=== PATIENT | female | born 1985 ===

== ENCOUNTER 2018-10-02 08:52 | Inpatient (IN) | payer OTHER ==
[2018-10-02] VITALS (18 sets, daily range): BP systolic 93–130; BP diastolic 50–76; PULSE 64–99; TEMP 97.6–98.1
[~2018-10-02] VITALS: Ht 152.4 cm; Wt 83.6 kg
[~2018-10-02 08:52] MED LIST: MOTRIN 600600 MG/TAB PO; PERCOCET 325 MG1 TA2 PO; PRENATAL VITAMI1 TAB PO
--- NOTE | 2018-10-02 09:02 | NUR ---
[id number] TO 211 FOR SCHEDULED REPEAT C/S. ASSISTED INTO GOWN AND PLACED ON EFM. PATIENT ASSESSMENT COMPLETE. CONSNETS REVIEWED AND SIGNED. 0925-IV TO RIGHT WRIST. BLOOD COLLECTED AND SENT TO LAB. LR INFUSING. REVIEWED PLAN OF CARE. CLIPPERS TRIMMED MONS PUBIS. ABDOMEN CLEANSED BY PATIENT WITH SURGICAL SCRUB.
[2018-10-02 09:46] LABS: BASO % 0.3 % (0.0-2.0); EOS # 0.1 (0.0-0.7); EOS % 0.6 % (0-4.0); GRAN # 5.8 (1.4-6.5); GRAN % 74.7 % (42.2-75.2); HEMATOCRIT 37.1 % (37.0-47.0); HEMOGLOBIN 12.3 g/dl (12.5-16.0); LYMPH # 1.2 (1.2-3.4); LYMPH % 15.6 % (20.0-51.0); MEAN CELL VOLUME 77 fl (80.0-100.0); MEAN CORPUSCULAR HEMOGLOBIN 26 pg (27.0-31.0); MEAN CORPUSCULAR HGB CONC 33 g/dl (33.0-37.0); MEAN PLATELET VOLUME 11.8 fl (7.4-10.4); MONO # 0.6 (0.1-0.6); MONO % 8.2 % (1.7-9.3); PLATELET COUNT 192 K/mm3 (130-400); RED BLOOD COUNT 4.83 M/mm3 (4.10-5.30); REDCELL DISTRIBUTION WIDTH-CV 13.7 % (11.5-14.5)
--- NOTE | 2018-10-02 11:06 | NUR ---
1106-AMBULATORY TO OR WITH SPOUSE AT SIDE. ASSISTED TO OR TABLE. 1108-EFM IN PLACE, AUDIBLE FHR 145BPM, DIFFICULTY TRACING DUE TO MATERNAL POSITIONING FOR SPINAL. 1112-WL 1113-FHR REMAINS 145-150BPM. OFF EFM.
--- NOTE | 2018-10-02 12:40 | NUR ---
Assumed care of patient while in pacu. 1244 Baby brought in by Natalya bullock Attempts to feed baby. Latches on with some crying. Denies any pain at this time.
--- NOTE | 2018-10-02 12:50 | NUR ---
Continues to hold baby skin to skin. Latches on at times.
--- NOTE | 2018-10-02 12:53 | NUR ---
1225-PATIENT TO PACU VIA BED. RECIEVED BEDSIDE REPORT FROM MATTEO WARD. PATIENT A&O X4. REPORTS NO PAIN. IVF TO RIGHT WRIST, HDZ TO DD, CLEAR YELLOW URINE. ABDOMINAL BINDER, FUNDAL MASSAGE FIRM. LOCHIAL WNL, ABDOMINAL DRESSING C/D/I. VSS, SEE RECOVERY FLOW RECORD.
--- NOTE | 2018-10-02 18:00 | NUR ---
1800-Patient ambulates with steady gait to bathroom, assisted with esther care and gown change.
[2018-10-03] VITALS: BP 113/60; PULSE 67; TEMP 97.4
[2018-10-03 04:45] VITALS: BP 117/67; PULSE 65; TEMP 97.6
[2018-10-03 07:49] VITALS: BP 99/40; PULSE 65; TEMP 97.6
--- NOTE | 2018-10-03 10:02 | NUR ---
Initial visit; Mom thanked Hop Picker for offering congratulations and God's blessings for the of ther daughter. Hop Picker thanked mom for choosing [facility].
[2018-10-03] MEDS ORDERED: IBU600 MG PO (13:00)
[2018-10-03] MEDS ORDERED: PERCOCET 325 MG1 TA2 PO (13:00)
[2018-10-03 16:15] VITALS: BP 108/58; PULSE 66; TEMP 98.4
[2018-10-03 22:40] VITALS: BP 105/62; PULSE 67
[2018-10-04 07:38] VITALS: BP 110/64; PULSE 74; TEMP 98.1
[2018-10-04 21:13] VITALS: BP 115/47; PULSE 77; TEMP 98.9
[2018-10-05 06:55] VITALS: BP 102/49; PULSE 68; TEMP 98.3
== END 2018-10-05 14:45 | disposition home or self-care (01) | DRG 787 ==
LOC: OB 08:52 → LDR 13:49 → OB 10-05 14:45
PROVIDERS: ADMIT Obstetrics & Gynecology
PROC: 10D00Z1 Extraction of Products of Conception, Low, Open Approach (ICD-10-PCS; principal; 2018-10-02)
DX: O34.211 Maternal care for low transverse scar from previous cesarean delivery (principal); O99.12 Other diseases of the blood and blood-forming organs and certain disorders involving the immune mechanism complicating childbirth; D56.3 Thalassemia minor; O99.214 Obesity complicating childbirth; Z3A.39 39 weeks gestation of pregnancy; Z37.0 Single live birth
CPT/HCPCS: J0171; J0690; J1885; J2175; J2370; J2405; J2590; J3010; J7120

== ENCOUNTER 2021-03-16 09:16 | Inpatient (IN) | payer OTHER ==
[2021-03-16] VITALS (16 sets, daily range): BP systolic 105–128; BP diastolic 38–74; PULSE 62–91; TEMP 98.4–98.9
[~2021-03-16] VITALS: Ht 160 cm; Wt 90.5 kg
[~2021-03-16 09:16] MED LIST changes: +IBU600 MG PO
--- NOTE | 2021-03-16 09:35 | NUR ---
Patient ambulatory to 210 with spoouse, changed into gown, FHR/TOCO monitors placed. Patient denies any leaking of fluid/vaginal bleeding/regular contractions/decreased movment. Plan of care discussed. 0945: IV started in left hand and blood obtained and to lab. LR infusing. Assessment completed/consents signed/ packet given. Plan of surgery discussed.
[2021-03-16] MEDS ORDERED: PRENATAL TABLET PO (09:58)
[2021-03-16 10:07] LABS: BASO % 0.4 % (0.0-2.0); EOS # 0.1 K/mm3 (0.0-0.7); EOS % 0.8 % (0-4.0); GRAN # 5.8 K/mm3 (1.4-6.5); GRAN % 74.5 % (42.2-75.2); HEMOGLOBIN 11.2 g/dl (12.5-16.0); LYMPH # 1.3 K/mm3 (1.2-3.4); LYMPH % 16.3 % (20.0-51.0); MEAN CELL VOLUME 73 fl (80.0-100.0); MEAN CORPUSCULAR HEMOGLOBIN 24 pg (27.0-31.0); MEAN CORPUSCULAR HGB CONC 33 g/dl (33.0-37.0); MEAN PLATELET VOLUME 11.2 fl (7.4-10.4); MONO # 0.6 K/mm3 (0.1-0.6); MONO % 7.5 % (1.7-9.3); PLATELET COUNT 266 K/mm3 (130-400); RED BLOOD COUNT 4.66 M/mm3 (4.10-5.30); REDCELL DISTRIBUTION WIDTH-CV 13.7 % (11.5-14.5)
[2021-03-16 10:08] LABS: HEMATOCRIT 34.2 % (37.0-47.0)
[2021-03-17 00:30] VITALS: BP 120/79; PULSE 81; TEMP 97.7
[2021-03-17] MEDS ORDERED: IBU600 MG PO (08:28)
[2021-03-17] MEDS ORDERED: PERCOCET 325 MG1 TA2 PO (08:28)
[2021-03-17 08:30] VITALS: BP 120/65; PULSE 77; TEMP 98
--- NOTE | 2021-03-17 09:22 | NUR ---
Initial visit; Parents thanked Guide Dog Trainer for offering congratulations and God's blessings for the of their son. Guide Dog Trainer thanked patient for choosing [facility].
[2021-03-17 17:26] VITALS: BP 98/55; PULSE 77; TEMP 97.5
[2021-03-17 19:00] VITALS: BP 131/64; PULSE 77; TEMP 97.8
[2021-03-18 07:55] VITALS: BP 125/60; PULSE 63; TEMP 97.7
[2021-03-18 16:30] VITALS: BP 127/62; PULSE 80; TEMP 97.6
[2021-03-18 19:20] VITALS: BP 123/58; PULSE 84; TEMP 98.7
[2021-03-19 08:00] VITALS: BP 130/76; PULSE 93; TEMP 98.3
--- NOTE | 2021-03-19 13:15 | NUR ---
1210DISCHARGE INSTRUCTIONS REVIEWED WITH PATIENT. PATIENT VERBALIZED UNDERSTANDING. WILL NOTIFY THIS RN WHEN READY TO LEAVE. 1230ALL PERSONAL BELONGINGS GATHERED FROM PATIENT ROOM. PATIENT LEFT AMBULATORY AND IN NO APPARENT DISTRESS. PATIENT ACCOMPANIED BY THIS SPOUSE ADN THIS RN.
== END 2021-03-19 12:30 | disposition home or self-care (01) | DRG 788 ==
LOC: OB 09:16
PROVIDERS: ADMIT Obstetrics & Gynecology
PROC: 10D00Z1 Extraction of Products of Conception, Low, Open Approach (ICD-10-PCS; principal; 2021-03-16)
DX: O34.211 Maternal care for low transverse scar from previous cesarean delivery (principal); Z3A.39 39 weeks gestation of pregnancy; Z37.0 Single live birth
CPT/HCPCS: J0690; J1100; J1885; J2210; J2270; J2405; J2590; J2765; J7120